=== PATIENT | female | born 1960 | race Caucasian/White ===

== ENCOUNTER → 2016-10-06 | Outpatient (CLI) | payer BC ==
--- NOTE | 2016-10-09 08:00 | MAMMOGRAPHY REPORT ---
BILATERAL DIGITAL SCREENING MAMMOGRAM TOMOSYNTHESIS WITH CAD: 10/06/2016 CLINICAL HISTORY: Routine screening. Patient has no complaints. TECHNIQUE: Breast tomosynthesis in addition to standard 2D mammography was performed. Current study was also evaluated with a Computer Aided Detection (CAD) system. COMPARISON: Comparison is made to exams dated: 09/26/2010 mammogram - [facility]. BREAST COMPOSITION: There are scattered areas of fibroglandular density in both breasts. FINDINGS: There is a 9 mm focal asymmetry in the left lateral breast at approximately 3:00, for whic h spot compression tomosynthesis views and possible breast ultrasound are recommended for further beatris luation. The remainder of both breasts are negative, without suspicious masses, calcifications, or areas of ar chitectural distortion noted. Previously seen bilateral breast implants have been removed. IMPRESSION: ACR BI-RADS CATEGORY 0: INCOMPLETE EVALUATION: NEED ADDITIONAL IMAGING EVALUATION Left breast asymmetry, for which additional imaging evaluation is recommended. The patient will be c alled to schedule an appointment. Approximately 10% of breast cancers are not detected with mammography. A negative mammographic report should not delay biopsy if a clinically suggestive mass is present. Chelita Bryant M.D. ah/:10/06/2016 14:54:01 Malt Roaster: Faiza JONES(Sammie)(Catherine)(BD), [facility] letter sent: Addl Imaging 0 BI-RADS Code: ACR BI-RADS Category 0: Incomplete Evaluation: Need Additional Imaging Evaluation
== END | disposition home or self-care (01) ==
LOC: C.MAMM 11:31
PROVIDERS: ATTEND Family Medicine
DX: Z12.31 Encounter for screening mammogram for malignant neoplasm of breast (principal); R92.8 Other abnormal and inconclusive findings on diagnostic imaging of breast

== ENCOUNTER → 2016-10-18 | Outpatient (CLI) | payer BC ==
--- NOTE | 2016-10-18 14:15 | MAMMOGRAPHY REPORT ---
UNILATERAL LEFT DIGITAL DIAGNOSTIC MAMMOGRAM TOMOSYNTHESIS AND TARGETED LEFT ULTRASOUND: 10/18/2016 CLINICAL HISTORY: Callback from screening mammogram for left breast asymmetry. TECHNIQUE: Breast tomosynthesis in addition to standard 2D mammography was performed. Spot compress ion left CC and MLO 2-D and tomosynthesis images were obtained. COMPARISON: Comparison is made to exams dated: 10/06/2016 mammogram and 09/26/2010 mammogram - [facility]. BREAST COMPOSITION: There are scattered areas of fibroglandular density in the left breast. FINDINGS: Spot compression views of the left breast demonstrate a low-density oval circumscribed 9 m m mass within the left lateral breast at approximately 3 to 4:00, best seen on the tomosynthesis imag es. The mass was not clearly evident on the prior 2010 exam. Targeted ultrasound was performed of the left 3 to 4:00 breast in the region of the mammographic mass . In the left breast at 4:00, 2 cm from the nipple, there is an oval circumscribed hypoechoic solid appearing 8 x 3 x 7 mm mass. This corresponds with the mammographic mass and is indeterminate. Ultr asound guided core needle biopsy is recommended for further evaluation. IMPRESSION: ACR BI-RADS CATEGORY 4: SUSPICIOUS, TARGETED ULTRASOUND ACR BI-RADS CATEGORY 4: SUSPICIO US Hypoechoic 8 mm mass in the left breast at 4:00 on ultrasound, which corresponds with the mammographi c mass. The mass is indeterminate and ultrasound guided core needle biopsy is recommended for furthe r evaluation. This may represent a fibroadenoma. A phone call was made to the physician's office to confirm faxed results were received. The patient has been verbally notified of the results. She tentatively scheduled the biopsy [facility] Approximately 10% of breast cancers are not detected with mammography. A negative mammographic report should not delay biopsy if a clinically suggestive mass is present. Chelita Bryant M.D. /:10/18/2016 11:53:55 Motorbike Courier: Temitope JONES(R)(M), [facility] letter sent: Abnormal 4/5 BI-RADS Code: ACR BI-RADS Category 4: Suspicious Ultrasound BI-RADS: ACR BI-RADS Category 4: Suspici ous
== END | disposition home or self-care (01) ==
LOC: C.MAMM 10:28
PROVIDERS: ATTEND Family Medicine
DX: R92.8 Other abnormal and inconclusive findings on diagnostic imaging of breast (principal); N63 Unspecified lump in breast

== ENCOUNTER → 2016-10-25 | Outpatient (CLI) | payer BC ==
--- NOTE | 2016-10-25 11:05 | Discharge Instructions ---
Discharge Instructions Procedure Procedure Date: Oct 25, 2016. Reason for visit: Left Mass. Discharge Discharge Date: Oct 25, 2016. Discharge Diagnosis: status post breast biopsy Instructions Activity Recommendations: Additional Limitations (see below) Return to School/Work: no limitations Recommended Home Diet: No Limitations Provider Instructions: ACTIVITY RECOMMENDATIONS: * No lifting, pushing, pulling or exercising the affected side for three days. RETURN TO SCHOOL/WORK: * You may return to work/school after the procedure, but do not perform any strenuous activities for 24 to 48 hours. MEDICATIONS: * Tylenol (two 325 mg) every four to six hours if needed for mild pain (if not allergic to Tylenol). DIET: * Resume previous diet. SPECIAL CARE INSTRUCTIONS: * Keep biopsy site dry for 24 hours. May shower after 24 hours, but do not soak (bathe) incision. * May remove Tegaderm (plastic patch) tomorrow AFTER showering. * Leave the steri-strips on for one week. Allow the steri-strips to fall off by themselves. If not off after one week, you may remove them. You may place a Bandaid crosswise over the strips, if desired. * Apply ice 10 minutes on and 10 minutes off as needed. * Wear a bra at bedtime to sleep more comfortably for 2-3 days. * Your referring physician should have the results after approximately 5 to 7 business days. * Call for unusual bleeding, fever, drainage, etc or if you have any questions call during normal business hours or after hours call Dr Bryant, [phone]. FOLLOW UP VISIT: Follow-up with Referring Physician as scheduled. Matty Sun Recommendations: Call your doctor if: * Temperature above 101 degrees * Pain not relieved by pain medicine ordered * There is increased drainage or redness from any incision * You have any unanswered questions or concerns. Your Doctors Instructions noted above were prepared by provider Chelita Bryant. Patient Signature Section: Patient Instructions Signature Page Theresa Hutchinson Patient (or Guardian) Signature/Date: I have read and understand the instructions given to me by my caregivers. Caregiver/RN/Doctor Signature/Date: The above-named patient and/or guardian has received patient instructions on this date. + Original Patient Signature Page (only) stays with chart. Please make copy for patient.
--- NOTE | 2016-10-25 13:48 | MAMMOGRAPHY REPORT ---
ULTRASOUND GUIDED BIOPSY LEFT BREAST: 10/25/2016 CLINICAL HISTORY: Left 4:00 breast mass. PATIENT CONSENT: The procedure, risks and benefits were discussed with the patient and informed writt en consent was obtained. A timeout was performed immediately prior to the procedure. PROCEDURE DESCRIPTION: With ultrasound guidance, aseptic technique, and lidocaine as the local anesth etic (1% lidocaine to anesthetize the skin and 1% lidocaine with epinephrine to anesthetize the deepe r tissues), the mass of concern in the left 4:00 breast was sampled 4 times with a 14-gauge Achieve b iopsy needle. Immediately thereafter, with ultrasound guidance, aseptic technique, and lidocaine as the local anesthetic, a metallic localizer clip was placed at the biopsy site. Direct pressure was a pplied to the site immediately post procedure and hemostasis was achieved. Postprocedure unilateral mammograms were performed to confirm placement of the clip in the expected location of the breast mas s. The patient tolerated the procedure without complication. She was given wound care instructions . The specimens were sent to pathology for analysis. COMPARISON: Comparison is made to exams dated: 10/18/2016 ultrasound, 10/18/2016 mammogram, 10/06/2016 mammogram, 09/26/2010 mammogram - [facility], 01/18/2007, and 09/11/2002 mammogram - [facility]. IMPRESSION: ULTRASOUND GUIDED BIOPSY Ultrasound guided core needle biopsy of the left 4:00 breast mass, with clip placement. The patient will receive pathology results from her referring provider. Chelita Bryant M.D. /:10/25/2016 11:07:01 Cream Buyer: Cari Machuca, [facility]
--- NOTE | 2016-10-25 13:50 | MAMMOGRAPHY REPORT ---
UNILATERAL LEFT DIGITAL DIAGNOSTIC MAMMOGRAM TOMOSYNTHESIS: 10/25/2016 CLINICAL HISTORY: Status post ultrasound-guided biopsy of the left 4:00 breast mass. TECHNIQUE: Breast tomosynthesis in addition to standard 2D mammography was performed. Postprocedura l left CC and ML tomosynthesis images including C views were obtained. COMPARISON: Comparison is made to exams dated: 10/18/2016 ultrasound, 10/18/2016 mammogram, 10/06/2016 mammogram, and 09/26/2010 mammogram - [facility]. BREAST COMPOSITION: There are scattered areas of fibroglandular density in the left breast. FINDINGS: A new biopsy marker clip is seen at the site of the biopsied mass in the left 4:00 breast. No significant postbiopsy hematoma is seen. IMPRESSION: POST PROCEDURE IMAGING FOR MARKER PLACEMENT New biopsy marker clip status post ultrasound-guided biopsy of a left 4:00 breast mass. Pathology re sults are pending. Approximately 10% of breast cancers are not detected with mammography. A negative mammographic report should not delay biopsy if a clinically suggestive mass is present. Chelita Bryant M.D. /:10/25/2016 11:14:22 Senior Manufacturing Engineer: Cari Machuca, [facility] BI-RADS Code: Post Procedure Imaging For Marker Placement
== END | disposition home or self-care (01) ==
LOC: C.MAMM 10:27
PROVIDERS: ATTEND Family Medicine
DX: D24.2 Benign neoplasm of left breast (principal)